=== PATIENT | female | born 1975 | race Caucasian/White ===

== ENCOUNTER 2018-02-17 11:44 | Outpatient (CLI) | payer BC | END 2018-02-17 11:45 | disposition home or self-care (01) | LOC: BICMAMMO 11:44 | PROVIDERS: ATTEND Obstetrics & Gynecology | DX: Z12.31 Encounter for screening mammogram for malignant neoplasm of breast (principal); R92.1 Mammographic calcification found on diagnostic imaging of breast; Z80.3 Family history of malignant neoplasm of breast | CPT/HCPCS: 77063; 77067 ==

== ENCOUNTER 2018-08-24 16:21 | Outpatient (CLI) | payer BC ==
--- NOTE | 2018-08-24 16:45 | RAD ---
FOUR VIEWS RIGHT KNEE: History: Swelling for two weeks. FINDINGS: AP, lateral, and both oblique views right knee obtained. There is no evidence of acute fractures, subluxations, or bony lesions. IMPRESSION: Normal four views right knee. POS: H
== END 2018-08-24 16:22 | disposition home or self-care (01) ==
LOC: BICRAD 16:21
PROVIDERS: ATTEND Chiropractor
DX: M25.561 Pain in right knee (principal)

== ENCOUNTER 2020-07-12 14:05 | Outpatient (CLI) | payer BC ==
--- NOTE | 2020-07-12 18:48 | MMO ---
Bilateral MAMMO Bilat Screen [facility]. CLINICAL HISTORY: Patient is 44 years old and is seen for screening. The patient has the following family history of breast cancer: maternal aunt, at age 60, malignant (generic). The patient has no personal history of cancer. VIEWS: The views performed were: bilateral craniocaudal with tomosynthesis and bilateral mediolateral oblique with tomosynthesis. FILMS COMPARED: The present examination has been compared to prior imaging studies performed at [facility] on 05/17/2010, 12/12/2015, 01/29/2017 and 02/17/2018. This study has been interpreted with the assistance of computer-aided detection. MAMMOGRAM FINDINGS: The breasts are almost entirely fat. There are no suspicious masses, suspicious calcifications, or new areas of architectural distortion. IMPRESSION: THERE IS NO MAMMOGRAPHIC EVIDENCE OF MALIGNANCY. A ROUTINE FOLLOW-UP MAMMOGRAM IN 1 YEAR IS RECOMMENDED. THE RESULTS OF THIS EXAM WERE SENT TO THE PATIENT. ACR BI-RADS Category 1 - Negative MAMMOGRAPHY NOTE: 1. A negative mammogram report should not delay a biopsy if a dominant of clinically suspicious mass is present. 2. Approximately 10% to 15% of breast cancers are not detected by mammography. 3. Adenosis and dense breasts may obscure an underlying neoplasm. Reported by: ANNA HUMPHREY MD Electonically Signed: [id number]
== END 2020-07-12 14:06 | disposition home or self-care (01) ==
LOC: BICMAMMO 14:05
PROVIDERS: ATTEND Family Medicine
DX: Z12.31 Encounter for screening mammogram for malignant neoplasm of breast (principal); Z80.3 Family history of malignant neoplasm of breast
CPT/HCPCS: 77063; 77067

== ENCOUNTER 2021-08-09 15:17 | Outpatient (CLI) | payer BC | END 2021-08-09 15:18 | disposition home or self-care (01) | LOC: BICMAMMO 15:17 | PROVIDERS: ATTEND Family Medicine | DX: Z12.31 Encounter for screening mammogram for malignant neoplasm of breast (principal); Z80.3 Family history of malignant neoplasm of breast | CPT/HCPCS: 77063; 77067 ==

== ENCOUNTER 2024-04-26 10:57 | Outpatient (CLI) | payer BC | END 2024-04-26 10:58 | disposition home or self-care (01) | LOC: BICMAMMO 10:57 | PROVIDERS: ATTEND Family Medicine | DX: Z12.31 Encounter for screening mammogram for malignant neoplasm of breast (principal); Z80.3 Family history of malignant neoplasm of breast; Z98.890 Other specified postprocedural states; Z98.82 Breast implant status | CPT/HCPCS: 77067 ==

== ENCOUNTER 2025-05-02 10:27 | Outpatient (CLI) | payer BC | END 2025-05-02 10:28 | disposition home or self-care (01) | LOC: BICMAMMO 10:27 | PROVIDERS: ATTEND Family Medicine | DX: Z12.31 Encounter for screening mammogram for malignant neoplasm of breast (principal); Z80.3 Family history of malignant neoplasm of breast; Z98.82 Breast implant status; Z98.890 Other specified postprocedural states | CPT/HCPCS: 77063; 77067 ==